=== PATIENT | female | born 1990 | race African-American/Black ===

== ENCOUNTER 2019-03-09 23:16 | Emergency (ER) | payer MEDICAID ==
[~2019-03-09] VITALS: Ht 162.6 cm; Wt 55.0 kg
[2019-03-09 23:20] VITALS: BP 105/86
== END 2019-03-10 04:08 | disposition left against medical advice (07) ==
LOC: ER 23:16
DX: Z53.21 Procedure and treatment not carried out due to patient leaving prior to being seen by health care provider (principal)

== ENCOUNTER 2019-06-16 16:16 | Emergency (ER) | payer MEDICAID | END 2019-06-16 17:08 | disposition left against medical advice (07) | LOC: ER 16:16 | DX: Z53.21 Procedure and treatment not carried out due to patient leaving prior to being seen by health care provider (principal) ==